=== PATIENT | female | born 1985 | race Caucasian/White ===

== ENCOUNTER 2017-08-30 00:06 | Inpatient (IN) | payer BC ==
[~2017-08-30] VITALS: Ht 175.3 cm; Wt 150.0 kg
--- OUTSIDE RECORDS SUMMARY | ~2017-08-30 | XMS ---
Demographics + + + | Address | [address] [place] [address] | | | [place] [address] | + + + | Preferred Language | Unknown | + + + | Marital Status | Unknown | + + + | Bahai Affiliation | Unknown | + + + | Race | Unknown | + + + | Ethnic Group | Unknown | + + + Author + + + | Author | [facility] | + + + | Organization | [facility] | + + + | Address | [address] | | | [place] [address] | + + + | Phone | | + + + Care Team Providers + + + + | Care New Patient Escort Name | Role | Phone | + + + + Unavailable | Unavailable | + + + + PROBLEMS +---------+ + + +--------+ + + | Type | Condition | ICD9-CM | [id number] | Onset | Condition | SNOMED | | | | Code | Code | Dates | Status | Code | +---------+ + + +--------+ + + | Problem | Encounter | | Z34.00 | | Active | [id number] | | | for | | | | | | | | supervisio | | | | | | | | n of | | | | | | | | normal | | | | | | | | first | | | | | | | | , | | | | | | | | | | | | | | | | unspecifie | | | | | | | | d | | | | | | | | trimester | | | | | | +---------+ + + +--------+ + + | Problem | Obesity | O99.210 | | | Active | [id number] | | | affecting | | | | | 07 | | | | | | | | | +---------+ + + +--------+ + + | Problem | Acute | 372.00 | | | Active | [id number] | | | conjunctiv | | | | | | | | itis NOS | | | | | | +---------+ + + +--------+ + + ALLERGIES Unknown Allergies SOCIAL HISTORY No smoking Hx information available PLAN OF CARE VITAL SIGNS MEDICATIONS Unknown Medications RESULTS No Results PROCEDURES No Known procedures IMMUNIZATIONS No Known Immunizations"
--- OUTSIDE RECORDS SUMMARY | ~2017-08-30 | XMS ---
Demographics + + + | Address | [address] [place] [address] | | | [place] [address] | + + + | Preferred Language | Unknown | + + + | Marital Status | Unknown | + + + | Islam Affiliation | Unknown | + + + | Race | Unknown | + + + | Ethnic Group | Unknown | + + + Author + + + | Author | [facility] | + + + | Organization | [facility] | + + + | Address | [address] | | | [place] [address] | + + + | Phone | | + + + Care Team Providers + + + + | Care Investor Relations Director Name | Role | Phone | + + + + Unavailable | Unavailable | + + + + PROBLEMS +---------+ + + +--------+ + + | Type | Condition | ICD9-CM | [id number] | Onset | Condition | SNOMED | | | | Code | Code | Dates | Status | Code | +---------+ + + +--------+ + + | Problem | Encounter | | Z34.00 | | Active | [id number] | | | for | | | [...] | O99.210 | | | Active | [id number] | | | affecting | | | | | 07 | | | | | | | | | +---------+ + + +--------+ + + | Problem | Acute | 372.00 | | | Active | [id number] | | | conjunctiv | | | | | | | | itis NOS | | | | | | +---------+ + + +--------+ + + ALLERGIES Unknown Allergies SOCIAL HISTORY No smoking Hx information available PLAN OF CARE VITAL SIGNS MEDICATIONS Unknown Medications RESULTS No Results PROCEDURES No Known procedures IMMUNIZATIONS No Known Immunizations"
[2017-08-30] MEDS ORDERED: VITAFOL-OB+DHA1 EACH PO (01:22)
[2017-08-30] MEDS ORDERED: ZANTAC150 MG PO (01:23)
--- NOTE | 2017-08-30 18:00 | NUR ---
08/30/17 1800 Ml Pang 1738-PATIENT ARRIVED TO PACU ON RA O2 SAT 96% AWAKE DENIES PAIN OR NAUSEA. FUNDUS MIDLINE FIRM LIGHT RUBRA DRAINAGE. PATIENT HAS BALLOON IN PLACE FOR BLOOD LOSS AND SORTO CATHETER. IV TO RIGHT ARM CDI INFUSING WITH LR 30 PITOCIN. SPINAL LEVEL AT T10. PATIENT TYPED AND CROSSED FOR 2 UNITS PRBCS PLAN TO GIVE TRANXEMIC ACID. 7589- AGUILAR AT BEDSIDE PATIENT RECEIVED HEMOBAIT IM. PRESSING ON FUNDUS AND MARKING.PLAN TO CHECK COAGS LAB AT BEDSIDE. DAD AT BEDSIDE WITH BABY.
--- NOTE | 2017-09-19 18:54 | OR ---
[facility] [address], [place] [address] Signed DATE OF OPERATION: 08/30/2017 SURGEON: Cirilo Anguiano DO PREOPERATIVE DIAGNOSES: 1. Breech presentation. 2. Gestational hypertension. 3. Obesity. 4. Rh negative. POSTOPERATIVE DIAGNOSES: 1. Breech presentation. 2. Gestational hypertension. 3. Obesity. 4. Rh negative. 5. hemorrhage, secondary to uterine atony. ANESTHESIA: Spinal. ESTIMATED BLOOD LOSS: 1400 mL. AIR TESTER: Johnathna Ramos MD COMPLICATIONS: Lower segment uterine atony with hemorrhage. FINDINGS: Delivery of a viable female , 5 pounds 13 ounces in the gabby breech presentation. Apgars 8 and 9 at 1 and 5 minutes respectively. The patient has normal uterus, tubes, and ovaries. The placenta was somewhat adherent to the posterior uterine wall, but this was gently teased away from the decidua with no evidence of accreta or abnormal placentation. The lower uterine segment was atonic and had some additional bleeding noted. INDICATIONS: Ms. Sharp is a very pleasant 32-year-old G1, P0, with IUP at 38 and 0 weeks gestation. Early in her , she developed elevated blood pressures and labs were negative Electronically Signed By: CIRILO ANGUIANO DO 09/19/17 1854 PATIENT NAME: MIRELA SHARP OPERATIVE REPORT DATE OF : 87 REPORT #: [id number] PHYSICIAN: CIRILO ANGUIANO DO PCP: CIRILO ANGUIANO DO REPORT IS CONFIDENTIAL AND NOT TO BE RELEASED WITHOUT AUTHORIZATION [facility] [address], [place] [address] Signed for preeclampsia. The patient was scheduled for induction of labor and her cervix was found to be non-favorable. She is admitted and Cytotec 2 doses were placed. AROM was then performed and the patient progressed. Additional sterile vaginal exam then was concerning for breech presentation and a bedside ultrasound was performed that confirmed breech presentation. The patient was consented for primary low transverse section. Risks, benefits, and alternatives were discussed in detail with the patient. The patient understands and wishes to proceed with the procedure. TECHNIQUE: The patient was taken to the operating room where a time-out was performed to confirm correct patient, correct procedure. Spinal anesthesia was adequately established and the patient was prepped and draped in the supine position with a bump under the right hip. A Marie catheter was inserted. ICPs were on running and Ancef 3 g were given preoperatively per skip protocol. After ensuring the spinal anesthesia was adequate, a Pfannenstiel skin incision was made 2 to 3 cm above the pubic symphysis. Incision was carried down to the fascia and the fascia was nicked in the midline with a surgical scalpel. Fascial incision was extended bilaterally using sharp dissection. The fascia was grasped with Dakota's, elevated in the underlying rectus muscles dissected sharply and bluntly. The rectus muscles were divided bluntly and the peritoneum was grasped with a hemostat, elevated, and entered sharply. Peritoneal incision was extended cephalocaudal using blunt and sharp dissection. The surgeon's hand was placed in the abdomen and no intraabdominal or pelvic adhesions were noted. An William self retracting device was placed and the lower segment was identified. Hysterotomy was then performed using a surgical scalpel and hysterotomy was then extended using blunt dissection. The surgeon's hand was placed into the uterine cavity and the hips grasped gently. General traction was applied. The legs delivered with gentle traction and the anterior shoulder was delivered after sweeping the arm medial. The was then rotated 180 degrees and the other arm was swept medially and the shoulder was delivered without difficulty. The head was flexed and the vertex was delivered without difficulty. The was vigorous and cried and the oral nasopharynx were bulb suctioned. The cord was doubly clamped and cut and the handed to the awaiting pediatric team for further care. Cord blood was obtained for routine analysis. The placenta was attempted to be delivered by general expression of the uterus, however, they did not easily deliver. The placenta was then delivered manually and the posterior wall of the uterus seemed to be somewhat adherent to the placenta. Detailed examination was performed before attempting to remove this and no percreta or other concerning signs were noted for accreta. This adherent portion of the placenta was then gently teased off the decidual border and delivered without difficulty. The lower uterine segment well away from the previously described placental location was noted to be somewhat atonic and some bleeding was noted. Pressure was applied and Pitocin and Cytotec were given. Hemabate was then given x1 dose and the bleeding was much improved. Hysterotomy was then repaired using 0 Vicryl in a running locked suture. A 2nd vertical imbricating Electronically Signed By: CIRILO ANGUIANO DO 09/19/17 1854 PATIENT NAME: MIRELA SHARP OPERATIVE REPORT DATE OF : 87 REPORT #: [id number] PHYSICIAN: CIRILO ANGUIANO DO PCP: CIRILO ANGUIANO DO REPORT IS CONFIDENTIAL AND NOT TO BE RELEASED WITHOUT AUTHORIZATION [address] [address] Signed stitch of 0 Vicryl was then applied with good reapproximation and imbrication noted. The fundus was firm and the drapes were checked for bleeding between the patient's legs and scant bleeding was noted by the RN. Evicel was applied to the lower uterine segment after irrigation and the William self retractor was removed. The pelvis was then again examined, found to be hemostatic and a cell sheet was applied to the lower uterine segment. Peritoneum was then reapproximated using 3-0 Vicryl in a running nonlocked stitch. Rectus muscle was reapproximated using 0 Vicryl and 3 interrupted loose sutures. The rectus muscle was examined, found to be hemostatic, and a cell powder was applied. The fascia was reapproximated using 0 Vicryl in a running-nonlocking suture. The subcu layer was examined, found to be hemostatic. This was reapproximated in 2 layers of 2-0 Vicryl. Skin was then reapproximated using Quill suture and subcuticular stitch with good hemostasis and cosmesis. Surgeon's gloves were then changed and the uterus was Crede'd for 600 mL of blood and clot. Active bleeding was noted and decision was made to proceed with Bakri balloon. A Bakri balloon was brought and placed through the cervical os to the fundus. This was then filled with 250 mL of sterile water without difficulty. Optimal placement was observed and later confirmed with bedside ultrasound. The bleeding was much improved and the patient was taken to the PACU for further evaluation and care. Please see anesthesia record for timing and dosages of medications as well as fluid resuscitation. See postoperative progress notes for additional treatment of hemorrhage. Sponge, needle, and instrument count was correct x2 at the end of the procedure. Dr. Ramos was present and participated in all portions of the procedure. Cirilo Anguiano DO JDW/MODL /[id number] Electronically Signed By: CIRILO ANGUIANO DO 09/19/17 1854 PATIENT NAME: MIRELA SHARP OPERATIVE REPORT DATE OF : 87 REPORT #: [id number] PHYSICIAN: CIRILO ANGUIANO DO PCP: CIRILO ANGUIANO DO REPORT IS CONFIDENTIAL AND NOT TO BE RELEASED WITHOUT AUTHORIZATION
== END 2017-09-01 10:40 | disposition home or self-care (01) | DRG 765 ==
LOC: FBC 00:06
PROVIDERS: ADMIT Obstetrics & Gynecology
PROC: 10D00Z1 Extraction of Products of Conception, Low, Open Approach (ICD-10-PCS; principal; 2017-08-30 15:24)
DX: O13.4 Gestational [pregnancy-induced] hypertension without significant proteinuria, complicating childbirth (principal); D62 Acute posthemorrhagic anemia; O72.1 Other immediate postpartum hemorrhage; Z37.0 Single live birth; O99.214 Obesity complicating childbirth; E66.01 Morbid (severe) obesity due to excess calories; O64.1XX0 Obstructed labor due to breech presentation, not applicable or unspecified; Z3A.38 38 weeks gestation of pregnancy; O77.0 Labor and delivery complicated by meconium in amniotic fluid
CPT/HCPCS: 01961; 36415; 82565; 83030; 84450; 84520; 84550; 85025; 85027; 85384; 85610; 85730; 86850; 86900; 86901; 86920; C1763; J0690; J1644; J2274; J2405; J2590; J2765; J2790; J3010; J7120